=== PATIENT | female | born 1945 | race Asian ===

== ENCOUNTER 2018-04-17 18:57 | Emergency (ER) | payer OTHER ==
[~2018-04-17] VITALS: Ht 165.1 cm; Wt 66.2 kg
[2018-04-17 18:57] VITALS: BP_SYST 200
[2018-04-17] MEDS ORDERED: NACL 0.9% 1,000 ML IV ONE (19:41)
[2018-04-17] MEDS ORDERED: KETOROLAC TROMETHAMINE 30 MG VIAL IVP ONE (19:45)
[2018-04-17] MEDS ORDERED: ONDANSETRON HCL 4 MG/2 ML VIAL IVP ONE (19:45)
[2018-04-17 20:14] LABS: BASOPHILS % (AUTO) 0.4 % (0.0-2.0); EOSINOPHILS # (AUTO) 0.3 K/uL (0.0-0.4); EOSINOPHILS % (AUTO) 3.4 % (0.0-4.0); HEMATOCRIT 29.1 % (36-48); HEMOGLOBIN 9.6 g/dL (12.0-16.0); LYMPHOCYTES # (AUTO) 2.4 K/uL (1.0-5.5); LYMPHOCYTES % (AUTO) 30.5 % (20.5-51.5); MEAN CORPUSCULAR HEMOGLOBIN 29 pg (27-31); MEAN CORPUSCULAR HGB CONC 33 % (32-36); MEAN CORPUSCULAR VOLUME 88 fL (79.0-98.0); MONOCYTES # (AUTO) 0.6 K/uL (0.0-1.0); MONOCYTES % (AUTO) 7.1 % (1.7-9.3); NEUTROPHILS # (AUTO) 4.7 K/uL (1.8-7.7); NEUTROPHILS % (AUTO) 58.6 % (40.0-70.0); PLATELET COUNT (AUTO) 283 K/uL (130-430); RED CELL DISTRIBUTION WIDTH 13.2 % (9.0-15.0)
[2018-04-17 20:23] LABS: BILIRUBIN,URINE NEGATIVE (NEGATIVE); BLOOD, URINE NEGATIVE (NEGATIVE); CLARITY/URINE CLEAR (CLEAR); COLOR,URINE YELLOW (YELLOW); GLUCOSE,URINE 1+ (NEGATIVE); KETONES,URINE NEGATIVE (NEGATIVE); LEUKOCYTE ESTERASE ,URINE TRACE (NEGATIVE); NITRITE, URINE NEGATIVE (NEGATIVE); PH,URINE 6.5 (5.0-8.0); PROTEIN URINE NEGATIVE (NEGATIVE)
[2018-04-17 20:24] LABS: RBC,URINE 0-3 /HPF (0-3); UROBILINOGEN,URINE 0.2 (0.2-1.0)
[2018-04-17 20:25] LABS: BACTERIA,URINE FEW /HPF (None Seen)
[2018-04-17 20:26] LABS: ANION GAP 6 (5-15); CALCIUM 8.7 mg/dL (8.4-11.0); CHLORIDE 104 mmol/L (98-107); CREATININE 1.36 mg/dL (0.55-1.30); GLUCOSE 228 mg/dL (70-99); POTASSIUM 4.6 mmol/L (3.5-5.1); SODIUM SERUM 135 mmol/L (136-145); UREA NITROGEN, BLOOD 22 mg/dL (8-21)
[2018-04-17 20:27] LABS: PROTHROMBIN TIME 9.8 SECS (9.5-12.5)
[2018-04-17 20:30] LABS: ALANINE AMINOTRANSFERASE 27 U/L (12-78); ALBUMIN 3.4 g/dL (3.4-4.8); ASPARTATE AMINOTRANSFERASE 16 U/L (10-37); LIPASE 171 U/L (73-393); TOTAL BILIRUBIN 0.2 mg/dL (0.0-1.0)
[2018-04-17 21:35] VITALS: BP_SYST 138
== END 2018-04-17 21:35 | disposition home or self-care (01) ==
LOC: SED 18:57
DX: B34.9 Viral infection, unspecified (principal); D64.9 Anemia, unspecified; M25.552 Pain in left hip; M79.10 Myalgia, unspecified site; E11.9 Type 2 diabetes mellitus without complications; I10 Essential (primary) hypertension; Z88.5 Allergy status to narcotic agent
CPT/HCPCS: 36415; 71045; 80053; 81000; 83690; 84484; 85025; 85610; 85730; 86710; 87086; 96361; 96374; 96375; 99284; J1885; J2405; J7030

== ENCOUNTER 2018-04-20 21:49 | Emergency (ER) | payer OTHER ==
[~2018-04-20] VITALS: Ht 165.1 cm; Wt 66.2 kg
[2018-04-20 21:58] VITALS: BP_SYST 170
[2018-04-20] MEDS ORDERED: NS 500 ML IV ONE (22:15)
[2018-04-20 22:39] LABS: ANION GAP 11 (5-15); CALCIUM 8.7 mg/dL (8.4-11.0); CHLORIDE 102 mmol/L (98-107); CREATININE 1.62 mg/dL (0.55-1.30); GLUCOSE 253 mg/dL (70-99); POTASSIUM 4.3 mmol/L (3.5-5.1); SODIUM SERUM 137 mmol/L (136-145); UREA NITROGEN, BLOOD 35 mg/dL (8-21)
[2018-04-20 22:42] LABS: INR 0.9 (0.8-1.2); PROTHROMBIN TIME 9.6 SECS (9.5-12.5)
[2018-04-20 22:45] LABS: ALANINE AMINOTRANSFERASE 28 U/L (12-78); ALBUMIN 3.7 g/dL (3.4-4.8); ASPARTATE AMINOTRANSFERASE 19 U/L (10-37); TOTAL BILIRUBIN 0.2 mg/dL (0.0-1.0)
[2018-04-20] MEDS ORDERED: LEVOFLOXACIN 500 MG/D5W 100 ML IV ONE (22:45)
[2018-04-20 23:09] LABS: BASOPHILS % (AUTO) 0.5 % (0.0-2.0); EOSINOPHILS # (AUTO) 0.3 K/uL (0.0-0.4); EOSINOPHILS % (AUTO) 4.6 % (0.0-4.0); HEMATOCRIT 29.8 % (36-48); HEMOGLOBIN 9.7 g/dL (12.0-16.0); LYMPHOCYTES # (AUTO) 2.3 K/uL (1.0-5.5); LYMPHOCYTES % (AUTO) 32.1 % (20.5-51.5); MEAN CORPUSCULAR HEMOGLOBIN 28 pg (27-31); MEAN CORPUSCULAR HGB CONC 32 % (32-36); MEAN CORPUSCULAR VOLUME 88 fL (79.0-98.0); MONOCYTES # (AUTO) 0.7 K/uL (0.0-1.0); MONOCYTES % (AUTO) 10.2 % (1.7-9.3); NEUTROPHILS # (AUTO) 3.8 K/uL (1.8-7.7); NEUTROPHILS % (AUTO) 52.6 % (40.0-70.0); PLATELET COUNT (AUTO) 259 K/uL (130-430); RED CELL DISTRIBUTION WIDTH 12.8 % (9.0-15.0); WHITE BLOOD COUNT (AUTO) 7.1 K/uL (4.8-10.8)
[2018-04-21 00:44] LABS: BILIRUBIN,URINE NEGATIVE (NEGATIVE); BLOOD, URINE NEGATIVE (NEGATIVE); CLARITY/URINE CLEAR (CLEAR); COLOR,URINE YELLOW (YELLOW); GLUCOSE,URINE 1+ (NEGATIVE); KETONES,URINE NEGATIVE (NEGATIVE); LEUKOCYTE ESTERASE ,URINE TRACE (NEGATIVE); NITRITE, URINE NEGATIVE (NEGATIVE); PH,URINE 6.5 (5.0-8.0); PROTEIN URINE NEGATIVE (NEGATIVE); UROBILINOGEN,URINE 0.2 (0.2-1.0)
[2018-04-21 00:56] LABS: BACTERIA,URINE RARE /HPF (None Seen); RBC,URINE 0-3 /HPF (0-3)
[2018-04-21 01:20] VITALS: BP_SYST 146
== END 2018-04-21 01:20 | disposition home or self-care (01) ==
LOC: SED 21:49
DX: N39.0 Urinary tract infection, site not specified (principal); E11.9 Type 2 diabetes mellitus without complications; I10 Essential (primary) hypertension; Z88.5 Allergy status to narcotic agent
CPT/HCPCS: 36415; 71045; 80053; 81000; 83605; 84484; 85025; 85610; 85730; 87040; 87086; 93005; 96365; 99284; J1956; J7040

== ENCOUNTER 2018-05-06 22:27 | Inpatient (IN) | payer OTHER ==
[~2018-05-06] VITALS: Ht 165.1 cm; Wt 68.0 kg
[2018-05-06 22:30] VITALS: BP_SYST 145
[2018-05-06] MEDS ORDERED: NITROGLYCERIN 1 INCH (GM) OINT. TP ONE (22:45)
[2018-05-06 23:06] LABS: BASOPHILS # (AUTO) 0.1 K/uL (0.0-0.2); BASOPHILS % (AUTO) 0.9 % (0.0-2.0); EOSINOPHILS # (AUTO) 0.3 K/uL (0.0-0.4); EOSINOPHILS % (AUTO) 3.2 % (0.0-4.0); LYMPHOCYTES % (AUTO) 36.4 % (20.5-51.5); MEAN CORPUSCULAR HEMOGLOBIN 28 pg (27-31); MEAN CORPUSCULAR HGB CONC 32 % (32-36); MEAN CORPUSCULAR VOLUME 89 fL (79.0-98.0); MONOCYTES # (AUTO) 0.5 K/uL (0.0-1.0); MONOCYTES % (AUTO) 6.4 % (1.7-9.3); NEUTROPHILS # (AUTO) 4.4 K/uL (1.8-7.7); NEUTROPHILS % (AUTO) 53.1 % (40.0-70.0); PLATELET COUNT (AUTO) 257 K/uL (130-430); RED BLOOD CELL COUNT(AUTO) 2.32 MIL/uL (4.2-6.2); RED CELL DISTRIBUTION WIDTH 13.8 % (9.0-15.0); WHITE BLOOD COUNT (AUTO) 8.3 K/uL (4.8-10.8)
[2018-05-06 23:08] LABS: HEMOGLOBIN 6.5 g/dL (12.0-16.0)
[2018-05-06 23:09] LABS: HEMATOCRIT 20.5 % (36-48)
[2018-05-06 23:21] LABS: ANION GAP 13 (5-15); CALCIUM 9.2 mg/dL (8.4-11.0); CHLORIDE 108 mmol/L (98-107); CREATININE 1.97 mg/dL (0.55-1.30); GLUCOSE 231 mg/dL (70-99); SODIUM SERUM 139 mmol/L (136-145); UREA NITROGEN, BLOOD 89 mg/dL (8-21)
[2018-05-06 23:26] LABS: PROTHROMBIN TIME 9.8 SECS (9.5-12.5)
[2018-05-06 23:28] LABS: ALANINE AMINOTRANSFERASE 17 U/L (12-78); ALBUMIN 3.1 g/dL (3.4-4.8); ASPARTATE AMINOTRANSFERASE 12 U/L (10-37); TOTAL BILIRUBIN 0.1 mg/dL (0.0-1.0)
[2018-05-07] VITALS (7 sets, daily range): BP systolic 107–143
[2018-05-07] MEDS ORDERED: PANTOPRAZOLE SODIUM 80 MG in NS 100 ML IV ONE (09:00)
[2018-05-07] MEDS ORDERED: DEXTROSE 50% JECT 50 ML DISP.SYRIN IVP PRN (10:00)
[2018-05-07 10:07] LABS: BASOPHILS # (AUTO) 0.1 K/uL (0.0-0.2); BASOPHILS % (AUTO) 0.7 % (0.0-2.0); EOSINOPHILS # (AUTO) 0.2 K/uL (0.0-0.4); LYMPHOCYTES # (AUTO) 2.5 K/uL (1.0-5.5); MONOCYTES # (AUTO) 0.6 K/uL (0.0-1.0)
[2018-05-07 10:11] LABS: EOSINOPHILS % (AUTO) 2.9 % (0.0-4.0); HEMATOCRIT 22.5 % (36-48); LYMPHOCYTES % (AUTO) 32.9 % (20.5-51.5); MEAN CORPUSCULAR HEMOGLOBIN 28 pg (27-31); MEAN CORPUSCULAR HGB CONC 33 % (32-36); MEAN CORPUSCULAR VOLUME 86 fL (79.0-98.0); MONOCYTES % (AUTO) 7.9 % (1.7-9.3); NEUTROPHILS # (AUTO) 4.1 K/uL (1.8-7.7); NEUTROPHILS % (AUTO) 55.6 % (40.0-70.0); PLATELET COUNT (AUTO) 215 K/uL (130-430); RED BLOOD CELL COUNT(AUTO) 2.62 MIL/uL (4.2-6.2); RED CELL DISTRIBUTION WIDTH 14.1 % (9.0-15.0); WHITE BLOOD COUNT (AUTO) 7.5 K/uL (4.8-10.8)
[2018-05-07] MEDS ORDERED: SPIR25TA6 PO (10:12)
[2018-05-07] MEDS ORDERED: NOR10 PO (10:12)
[2018-05-07] MEDS ORDERED: LIP40 PO (10:12)
[2018-05-07] MEDS ORDERED: FERROUS SULFATE PO (10:12)
[2018-05-07] MEDS ORDERED: D3 PO (10:12)
[2018-05-07] MEDS ORDERED: APIX5TAB4 PO (10:12)
[2018-05-07] MEDS ORDERED: BENA40TA8 PO (10:12)
[2018-05-07] MEDS ORDERED: GLU500 PO (10:12)
[2018-05-07] MEDS ORDERED: TOPXL100 PO (10:12)
[2018-05-07] MEDS ORDERED: SSREG SUBCUT ×2 (10:12)
[2018-05-07] MEDS ORDERED: HYG25 PO (10:12)
[2018-05-07] MEDS ORDERED: PLAVIX PO (10:12)
[2018-05-07] MEDS ORDERED: HYDR100T25 PO (10:12)
[2018-05-07 10:16] LABS: ANION GAP 11 (5-15); CALCIUM 8.9 mg/dL (8.4-11.0); CHLORIDE 111 mmol/L (98-107); CREATININE 1.73 mg/dL (0.55-1.30); GLUCOSE 106 mg/dL (70-99); HEMOGLOBIN 7.4 g/dL (12.0-16.0); POTASSIUM 4.6 mmol/L (3.5-5.1); SODIUM SERUM 141 mmol/L (136-145); UREA NITROGEN, BLOOD 85 mg/dL (8-21)
[2018-05-07 10:25] LABS: ALANINE AMINOTRANSFERASE 15 U/L (12-78); ALBUMIN 2.9 g/dL (3.4-4.8); ASPARTATE AMINOTRANSFERASE 14 U/L (10-37); TOTAL BILIRUBIN 0.4 mg/dL (0.0-1.0)
[2018-05-07] MEDS ORDERED: CHLORTHALIDONE 25 MG TABLET (HYGROTON) PO ONE (10:30)
[2018-05-07] MEDS ORDERED: METOPROLOL SUCCINATE 50 MG TAB.SR.24H (TOPROL XL) PO ONE (10:30)
[2018-05-07] MEDS ORDERED: BENAZEPRIL HCL 20 MG TABLET (LOTENSIN) PO ONE (10:30)
[2018-05-07] MEDS ORDERED: amLODIPine BESYLATE 10 MG TABLET PO ONE (10:30)
[2018-05-07] MEDS ORDERED: hydrALAZINE HCL 25 MG TABLET PO ONE (10:30)
[2018-05-07] MEDS: NACL 0.9% 1,000 ML IV SCH ×2 (11:12→20:28)
[2018-05-07] MEDS: PANTOPRAZOLE SODIUM 40 MG in NS 50 ML IV SCH ×3 (11:13→20:28)
[2018-05-07] MEDS ORDERED: BISACODYL 5 MG TABLET.DR (DULCOLAX) PO ONE (17:00)
[2018-05-07] MEDS ORDERED: GOLYTELY / COLYTE SOLUTION 4 LITERS PO ONE (18:00)
[2018-05-07] MEDS: hydrALAZINE HCL 25 MG TABLET PO SCH (20:30)
[2018-05-07] MEDS: ATORVASTATIN 20 MG TABLET PO SCH (20:30)
[2018-05-08] MEDS: PANTOPRAZOLE SODIUM 40 MG in NS 50 ML IV SCH ×5 (01:00→21:08)
[2018-05-08] MEDS: MORPHINE 4 MG/ML INJ. SYRINGE IVP PRN ×3 (01:13→13:14)
[2018-05-08 01:18] VITALS: BP_SYST 116
[2018-05-08] MEDS: NACL 0.9% 1,000 ML IV SCH ×3 (05:40→23:32)
[2018-05-08] MEDS ORDERED: fentaNYL CITRATE/PF 100 MCG/2 ML AMP ONE (06:10)
[2018-05-08] MEDS ORDERED: MIDAZOLAM HCL 5 MG/5 ML VIAL ONE (06:10)
[2018-05-08] MEDS ORDERED: SIMETHICONE 40 MG/0.6 ML ML ONE (06:11)
[2018-05-08] MEDS ORDERED: BENZOCAINE 20% 0.5mL UD SPRAY MM ONE (06:11)
[2018-05-08] MEDS: fentaNYL CITRATE/PF 100 MCG/2 ML AMP ONE ×4 (07:04→07:31)
[2018-05-08] MEDS: MIDAZOLAM HCL 5 MG/5 ML VIAL ONE ×5 (07:06→07:26)
[2018-05-08 07:30] LABS: PROTHROMBIN TIME 10.1 SECS (9.5-12.5)
[2018-05-08 08:21] VITALS: BP_SYST 145
[2018-05-08] MEDS: METOPROLOL SUCCINATE 50 MG TAB.SR.24H (TOPROL XL) PO SCH (10:00)
[2018-05-08] MEDS: hydrALAZINE HCL 25 MG TABLET PO SCH ×2 (10:01→21:07)
[2018-05-08] MEDS: BENAZEPRIL HCL 20 MG TABLET (LOTENSIN) PO SCH (10:01)
[2018-05-08] MEDS: amLODIPine BESYLATE 10 MG TABLET PO SCH (10:02)
[2018-05-08] MEDS: CHLORTHALIDONE 25 MG TABLET (HYGROTON) PO SCH (10:03)
[2018-05-08 11:25] LABS: BASOPHILS # (AUTO) 0.1 K/uL (0.0-0.2); BASOPHILS % (AUTO) 0.7 % (0.0-2.0); EOSINOPHILS # (AUTO) 0.2 K/uL (0.0-0.4); EOSINOPHILS % (AUTO) 2.5 % (0.0-4.0); HEMOGLOBIN 7.5 g/dL (12.0-16.0); LYMPHOCYTES % (AUTO) 32.9 % (20.5-51.5); MEAN CORPUSCULAR HEMOGLOBIN 28 pg (27-31); MEAN CORPUSCULAR HGB CONC 33 % (32-36); MEAN CORPUSCULAR VOLUME 86 fL (79.0-98.0); MONOCYTES # (AUTO) 0.8 K/uL (0.0-1.0); MONOCYTES % (AUTO) 8.6 % (1.7-9.3); NEUTROPHILS % (AUTO) 55.3 % (40.0-70.0); PLATELET COUNT (AUTO) 250 K/uL (130-430); RED BLOOD CELL COUNT(AUTO) 2.68 MIL/uL (4.2-6.2); RED CELL DISTRIBUTION WIDTH 14.4 % (9.0-15.0); WHITE BLOOD COUNT (AUTO) 9.1 K/uL (4.8-10.8)
[2018-05-08 11:27] VITALS: BP_SYST 94
[2018-05-08] MEDS: INSULIN REGULAR, HUMAN 100 UNITS/ML, 10 ML VIAL (novoLIN R) SUBCUT PRN ×2 (11:34→17:36)
[2018-05-08 12:54] LABS: TOTAL IRON BIND. CAPACITY 330 ug/dL (250-450)
[2018-05-08 13:18] VITALS: BP_SYST 112
[2018-05-08 15:36] VITALS: BP_SYST 135
[2018-05-08 20:05] VITALS: BP_SYST 124
[2018-05-08] MEDS: ATORVASTATIN 20 MG TABLET PO SCH (21:08)
[2018-05-09 00:30] VITALS: BP_SYST 114
[2018-05-09] MEDS: PANTOPRAZOLE SODIUM 40 MG in NS 50 ML IV SCH ×5 (02:05→22:29)
[2018-05-09 07:08] LABS: BASOPHILS # (AUTO) 0.1 K/uL (0.0-0.2); BASOPHILS % (AUTO) 0.8 % (0.0-2.0); EOSINOPHILS # (AUTO) 0.2 K/uL (0.0-0.4); EOSINOPHILS % (AUTO) 3.1 % (0.0-4.0); HEMOGLOBIN 7.2 g/dL (12.0-16.0); LYMPHOCYTES % (AUTO) 30.4 % (20.5-51.5); MEAN CORPUSCULAR HEMOGLOBIN 29 pg (27-31); MEAN CORPUSCULAR HGB CONC 34 % (32-36); MEAN CORPUSCULAR VOLUME 87 fL (79.0-98.0); MONOCYTES # (AUTO) 0.7 K/uL (0.0-1.0); MONOCYTES % (AUTO) 11.4 % (1.7-9.3); NEUTROPHILS # (AUTO) 3.6 K/uL (1.8-7.7); NEUTROPHILS % (AUTO) 54.3 % (40.0-70.0); PLATELET COUNT (AUTO) 191 K/uL (130-430); RED BLOOD CELL COUNT(AUTO) 2.47 MIL/uL (4.2-6.2); RED CELL DISTRIBUTION WIDTH 14.6 % (9.0-15.0); WHITE BLOOD COUNT (AUTO) 6.6 K/uL (4.8-10.8)
[2018-05-09 07:22] LABS: ANION GAP 8 (5-15); CALCIUM 8.2 mg/dL (8.4-11.0); CHLORIDE 115 mmol/L (98-107); CREATININE 1.31 mg/dL (0.55-1.30); GLUCOSE 116 mg/dL (70-99); POTASSIUM 4.1 mmol/L (3.5-5.1); SODIUM SERUM 142 mmol/L (136-145); UREA NITROGEN, BLOOD 37 mg/dL (8-21)
[2018-05-09 07:28] LABS: HEMATOCRIT 21.4 % (36-48)
[2018-05-09 08:58] VITALS: BP_SYST 172
[2018-05-09] MEDS: amLODIPine BESYLATE 10 MG TABLET PO SCH (09:01)
[2018-05-09] MEDS: METOPROLOL SUCCINATE 50 MG TAB.SR.24H (TOPROL XL) PO SCH (09:02)
[2018-05-09] MEDS: BENAZEPRIL HCL 20 MG TABLET (LOTENSIN) PO SCH (09:02)
[2018-05-09] MEDS: hydrALAZINE HCL 25 MG TABLET PO SCH ×2 (09:03→21:01)
[2018-05-09] MEDS: CHLORTHALIDONE 25 MG TABLET (HYGROTON) PO SCH (09:04)
[2018-05-09] MEDS: NACL 0.9% 1,000 ML IV SCH ×2 (10:05→22:29)
[2018-05-09 11:34] VITALS: BP_SYST 103
[2018-05-09] MEDS: INSULIN REGULAR, HUMAN 100 UNITS/ML, 10 ML VIAL (novoLIN R) SUBCUT PRN ×2 (11:57→23:57)
[2018-05-09 15:43] VITALS: BP_SYST 138
[2018-05-09 18:01] LABS: BASOPHILS # (AUTO) 0.1 K/uL (0.0-0.2); BASOPHILS % (AUTO) 0.8 % (0.0-2.0); EOSINOPHILS # (AUTO) 0.3 K/uL (0.0-0.4); EOSINOPHILS % (AUTO) 3.5 % (0.0-4.0); HEMOGLOBIN 9.4 g/dL (12.0-16.0); LYMPHOCYTES # (AUTO) 1.9 K/uL (1.0-5.5); LYMPHOCYTES % (AUTO) 25.3 % (20.5-51.5); MEAN CORPUSCULAR HEMOGLOBIN 28 pg (27-31); MEAN CORPUSCULAR HGB CONC 32 % (32-36); MEAN CORPUSCULAR VOLUME 87 fL (79.0-98.0); MONOCYTES # (AUTO) 0.8 K/uL (0.0-1.0); MONOCYTES % (AUTO) 10.5 % (1.7-9.3); NEUTROPHILS # (AUTO) 4.3 K/uL (1.8-7.7); NEUTROPHILS % (AUTO) 59.9 % (40.0-70.0); PLATELET COUNT (AUTO) 201 K/uL (130-430); RED BLOOD CELL COUNT(AUTO) 3.34 MIL/uL (4.2-6.2); RED CELL DISTRIBUTION WIDTH 14.1 % (9.0-15.0); WHITE BLOOD COUNT (AUTO) 7.4 K/uL (4.8-10.8)
[2018-05-09 20:00] VITALS: BP_SYST 146
[2018-05-09 20:40] VITALS: BP_SYST 123
[2018-05-09] MEDS: ATORVASTATIN 20 MG TABLET PO SCH (21:01)
[2018-05-10] MEDS: PANTOPRAZOLE SODIUM 40 MG in NS 50 ML IV SCH ×2 (03:05→08:38)
[2018-05-10 07:12] LABS: BASOPHILS % (AUTO) 0.5 % (0.0-2.0); EOSINOPHILS # (AUTO) 0.2 K/uL (0.0-0.4); EOSINOPHILS % (AUTO) 3.5 % (0.0-4.0); HEMATOCRIT 27.7 % (36-48); HEMOGLOBIN 9.3 g/dL (12.0-16.0); LYMPHOCYTES # (AUTO) 1.8 K/uL (1.0-5.5); LYMPHOCYTES % (AUTO) 26.5 % (20.5-51.5); MEAN CORPUSCULAR HEMOGLOBIN 29 pg (27-31); MEAN CORPUSCULAR HGB CONC 34 % (32-36); MEAN CORPUSCULAR VOLUME 87 fL (79.0-98.0); MONOCYTES # (AUTO) 0.7 K/uL (0.0-1.0); MONOCYTES % (AUTO) 10.7 % (1.7-9.3); NEUTROPHILS # (AUTO) 4.1 K/uL (1.8-7.7); NEUTROPHILS % (AUTO) 58.8 % (40.0-70.0); PLATELET COUNT (AUTO) 183 K/uL (130-430); RED BLOOD CELL COUNT(AUTO) 3.19 MIL/uL (4.2-6.2); RED CELL DISTRIBUTION WIDTH 14.1 % (9.0-15.0); WHITE BLOOD COUNT (AUTO) 6.8 K/uL (4.8-10.8)
[2018-05-10 08:00] VITALS: BP_SYST 177
[2018-05-10 08:12] LABS: ALANINE AMINOTRANSFERASE 25 U/L (12-78); ALBUMIN 2.8 g/dL (3.4-4.8); ANION GAP 9 (5-15); ASPARTATE AMINOTRANSFERASE 25 U/L (10-37); CALCIUM 8.3 mg/dL (8.4-11.0); CHLORIDE 110 mmol/L (98-107); CREATININE 1.31 mg/dL (0.55-1.30); GLUCOSE 112 mg/dL (70-99); POTASSIUM 3.6 mmol/L (3.5-5.1); SODIUM SERUM 138 mmol/L (136-145); TOTAL BILIRUBIN 0.5 mg/dL (0.0-1.0); UREA NITROGEN, BLOOD 23 mg/dL (8-21)
[2018-05-10] MEDS: NACL 0.9% 1,000 ML IV SCH (08:37)
[2018-05-10] MEDS: METOPROLOL SUCCINATE 50 MG TAB.SR.24H (TOPROL XL) PO SCH (08:39)
[2018-05-10] MEDS: hydrALAZINE HCL 25 MG TABLET PO SCH (08:39)
[2018-05-10] MEDS: amLODIPine BESYLATE 10 MG TABLET PO SCH (08:39)
[2018-05-10] MEDS: BENAZEPRIL HCL 20 MG TABLET (LOTENSIN) PO SCH (08:40)
[2018-05-10] MEDS: CHLORTHALIDONE 25 MG TABLET (HYGROTON) PO SCH (08:52)
[2018-05-10] MEDS ORDERED: PANTOPRAZOLE SODIUM 40 MG TAB PO ONE (10:00)
[2018-05-10] MEDS ORDERED: FUROSEMIDE 20 MG/2 ML VIAL IVP ONE (10:15)
[2018-05-10 12:00] VITALS: BP_SYST 150; BP_SYST 177
[2018-05-10] MEDS: INSULIN REGULAR, HUMAN 100 UNITS/ML, 10 ML VIAL (novoLIN R) SUBCUT PRN (12:11)
[2018-05-10 14:00] VITALS: BP_SYST 150
[2018-05-10] MEDS ORDERED: PRO40 PO (14:08)
[2018-05-10] MEDS ORDERED: PANTOPRAZOLE SODIUM 40 MG TAB PO SCH (21:00)
== END 2018-05-10 14:30 | disposition home or self-care (01) | DRG 377 ==
LOC: SED 22:27 → STU 05-07 00:30
PROVIDERS: ADMIT Internal Medicine Hospice and Palliative Medicine; ATTEND Internal Medicine Hospice and Palliative Medicine
PROC: 30233N1 Transfusion of Nonautologous Red Blood Cells into Peripheral Vein, Percutaneous Approach (ICD-10-PCS; principal; 2018-05-07)
PROC: 0DJD8ZZ Inspection of Lower Intestinal Tract, Via Natural or Artificial Opening Endoscopic (ICD-10-PCS; 2018-05-08)
PROC: 0DB68ZX Excision of Stomach, Via Natural or Artificial Opening Endoscopic, Diagnostic (ICD-10-PCS; 2018-05-08 07:00)
DX: K25.4 Chronic or unspecified gastric ulcer with hemorrhage (principal); N17.0 Acute kidney failure with tubular necrosis; D62 Acute posthemorrhagic anemia; R07.9 Chest pain, unspecified; E11.9 Type 2 diabetes mellitus without complications; I10 Essential (primary) hypertension; I48.0 Paroxysmal atrial fibrillation; I25.10 Atherosclerotic heart disease of native coronary artery without angina pectoris; I48.2 Chronic atrial fibrillation; K22.2 Esophageal obstruction; K29.70 Gastritis, unspecified, without bleeding; K29.80 Duodenitis without bleeding; K64.8 Other hemorrhoids; Z79.01 Long term (current) use of anticoagulants; Z79.82 Long term (current) use of aspirin; Z90.12 Acquired absence of left breast and nipple; Z95.5 Presence of coronary angioplasty implant and graft; Z88.5 Allergy status to narcotic agent
CPT/HCPCS: 36415; 36600; 43239; 45378; 71045; 80048; 80053; 82272; 82550-TC; 82803-TC; 82962; 83540-TC; 83550-TC; 83880; 84484; 85025; 85610-TC; 85730-TC; 86886; 86900; 86901; 86920; 87081; 93005; 93306; 99291; C9113; G0378; J1815; J1940; J2250; J2270; J3010; J7030; J7040; P9021

== ENCOUNTER 2019-11-01 16:15 | Emergency (ER) | payer OTHER ==
[~2019-11-01] VITALS: Ht 165.1 cm; Wt 68.0 kg
[~2019-11-01 16:15] MED LIST: BENA40TA8 PO; D3 PO; FERROUS SULFATE PO; GLU500 PO; HYDR100T25 PO; HYG25 PO; LIP40 PO; NOR10 PO; PRO40 PO; SPIR25TA6 PO; SSREG SUBCUT; TOPXL100 PO
[2019-11-01 16:20] VITALS: BP_SYST 189
[2019-11-01] MEDS ORDERED: DIPH-TET-PERTUS Vaccine 0.5 ML VIAL (ADACEL) I.M. ONE (16:45)
[2019-11-01] MEDS ORDERED: LIDOCAINE 1% 10 MG/ML, 20 ML MDV INJ ONE (16:45)
[2019-11-01] MEDS ORDERED: LIDOCAINE 1%, 20 ML MDV 20 ML ONE (16:53)
[2019-11-01 16:58] VITALS: BP_SYST 189
[2019-11-01] MEDS ORDERED: BACITRACIN 1 GM OINT TP ONE (17:06)
== END 2019-11-01 16:58 | disposition home or self-care (01) ==
LOC: SED 16:15
DX: S61.451A Open bite of right hand, initial encounter (principal); I10 Essential (primary) hypertension; E11.9 Type 2 diabetes mellitus without complications; Z79.899 Other long term (current) drug therapy; Z88.5 Allergy status to narcotic agent; W54.0XXA Bitten by dog, initial encounter; Y93.89 Activity, other specified; Y92.89 Other specified places as the place of occurrence of the external cause; Y99.8 Other external cause status
CPT/HCPCS: 12001; 73100; 90471; 90715; 99283; J2001

== ENCOUNTER 2020-02-18 01:07 | Emergency (ER) | payer OTHER ==
[~2020-02-18] VITALS: Ht 165.1 cm; Wt 66.2 kg
[2020-02-18 01:25] VITALS: BP_SYST 164
--- NOTE | 2020-02-18 01:25 | NUR ---
Patient to ER bed 04 to gown for evaluation. Side rails up. Report given to CHUY Dinero
--- NOTE | 2020-02-18 01:25 | NUR ---
ER MD AT BEDSIDE FOR EVALUATION. AWAITING ORDERS
--- NOTE | 2020-02-18 01:30 | NUR ---
# 18 gauge angiocath placed to RAC. Use of asceptic technique. Opsite placed over site. Blood return noted. Blood, blood cultures, lactic for lab drawn from site. Flushed with 10 cc of normal saline. No evidence of infiltration noted. Patient tolerated well.
--- NOTE | 2020-02-18 01:30 | NUR ---
code stroke called
--- NOTE | 2020-02-18 01:35 | NUR ---
PT BIB DAUGHTER VIA WHEELCHAIR. DAUGHTER STATES SHE HAD A EPISODE OF CONFUSION STARTING AT 0025 TO ARRIVAL AT ED. PT DENIES ANY PAIN. PT DENIES DIZZINESS, CHEST PAIN, OR SOB. PT ANO X4. NO SIGNS OR SYMPTOMS OF DISTRESS NOTED. SAFETY PRECAUTIONS IN PLACE. WILL CONTINUE TO MONITOR.
--- NOTE | 2020-02-18 01:38 | NUR ---
Patient transported to radiology via wheelchair, accompanied by
[2020-02-18] MEDS ORDERED: SITA100T11 PO (01:48)
[2020-02-18] MEDS ORDERED: GLIM2TAB PO (01:48)
[2020-02-18] MEDS ORDERED: CLOP75TA32 PO (01:50)
[2020-02-18] MEDS ORDERED: FERR256T PO (01:50)
[2020-02-18] MEDS ORDERED: ASCO-339 PO (01:50)
[2020-02-18] MEDS ORDERED: CALC-885 PO (01:50)
[2020-02-18 01:51] LABS: BASOPHILS # (AUTO) 0.1 K/uL (0.0-0.2); BASOPHILS % (AUTO) 0.9 % (0.0-2.0); EOSINOPHILS # (AUTO) 0.3 K/uL (0.0-0.4); EOSINOPHILS % (AUTO) 3.5 % (0.0-4.0); HEMATOCRIT 37.9 % (36-48); HEMOGLOBIN 12.1 g/dL (12.0-16.0); LYMPHOCYTES # (AUTO) 1.7 K/uL (1.0-5.5); LYMPHOCYTES % (AUTO) 18.9 % (20.5-51.5); MEAN CORPUSCULAR HEMOGLOBIN 29 pg (27-31); MEAN CORPUSCULAR HGB CONC 32 % (32-36); MEAN CORPUSCULAR VOLUME 91 fL (79.0-98.0); MONOCYTES # (AUTO) 0.7 K/uL (0.0-1.0); MONOCYTES % (AUTO) 7.6 % (1.7-9.3); NEUTROPHILS # (AUTO) 6.2 K/uL (1.8-7.7); NEUTROPHILS % (AUTO) 69.1 % (40.0-70.0); PLATELET COUNT (AUTO) 249 K/uL (130-430); RED BLOOD CELL COUNT(AUTO) 4.16 MIL/uL (4.2-6.2); RED CELL DISTRIBUTION WIDTH 13.3 % (9.0-15.0)
--- NOTE | 2020-02-18 01:51 | NUR ---
Medication reconciliation completed with information provided by daughter. Any prior medication reconciliation on file was reviewed and corrected.
[2020-02-18 02:04] LABS: ANION GAP 9 (5-15); CHLORIDE 99 mmol/L (98-107); CREATININE 1.37 mg/dL (0.55-1.30); GLUCOSE 168 mg/dL (70-99); POTASSIUM 4.3 mmol/L (3.5-5.1); SODIUM SERUM 132 mmol/L (136-145); UREA NITROGEN, BLOOD 31 mg/dL (8-21)
[2020-02-18 02:08] LABS: C-REACTIVE PROTEIN QUANT < 0.2 mg/dL (0-0.5)
[2020-02-18 02:21] LABS: ACETAMINOPHEN < 1 ug/mL (1-30); ALANINE AMINOTRANSFERASE 21 U/L (12-78); ALBUMIN 4.3 g/dL (3.4-4.8); ALCOHOL, BLOOD < 3 mg/dL (<10); ASPARTATE AMINOTRANSFERASE 16 U/L (10-37); LACTATE DEHYDROGENASE 194 U/L (81-234); TOTAL BILIRUBIN 0.3 mg/dL (0.0-1.0)
--- NOTE | 2020-02-18 02:33 | NUR ---
CRITICAL LAB REPORTING - COVID POSITIVE. AWARE.
[2020-02-18 02:46] LABS: PROTHROMBIN TIME 9.8 SECS (9.5-12.5)
--- NOTE | 2020-02-18 02:58 | NUR ---
SWALLOW EVAL PERFORMED AT BEDSIDE. PT TOLERATED PROCEDURE WELL. WILL CONTINUE TO MONITOR.
--- NOTE | 2020-02-18 03:17 | NUR ---
PT ABLE TO VOID, SPECIMEN COLLECTED AND SENT TO LAB
[2020-02-18 03:29] LABS: BILIRUBIN,URINE NEGATIVE (NEGATIVE); BLOOD, URINE NEGATIVE (NEGATIVE); CLARITY/URINE CLEAR (CLEAR); COLOR,URINE YELLOW (YELLOW); GLUCOSE,URINE NEGATIVE (NEGATIVE); KETONES,URINE NEGATIVE (NEGATIVE); LEUKOCYTE ESTERASE ,URINE TRACE (NEGATIVE); NITRITE, URINE NEGATIVE (NEGATIVE); PROTEIN URINE 1+ (NEGATIVE); UROBILINOGEN,URINE 0.2 (0.2-1.0)
[2020-02-18 03:35] LABS: BACTERIA,URINE FEW /HPF (None Seen); RBC,URINE 0-3 /HPF (0-3)
[2020-02-18 03:36] LABS: BARBITURATE, URINE NEGATIVE (NEG <=200); BENZODIAZEPINE, URINE NEGATIVE (NEG <=150); CANNABINOID, URINE NEGATIVE (NEG <=50); COCAINE, URINE NEGATIVE (NEG <=150); METHAMPHETAMINES SCREEN,URINE NEGATIVE (NEG <=500); OPIATE, URINE NEGATIVE (NEG <=100); PHENCYCLIDINE SCREEN,URINE NEGATIVE (NEG <=25); UR TRICYCLIC ANTIDEPRESSANTS NEGATIVE (NEG <=300); URINE AMPHETAMINE NEGATIVE (NEG <=500); URINE METHADONE NEGATIVE (NEG <=200); URINE OXYCODONE SCREEN NEGATIVE (NEG <=100); URINE PROPOXYPHENE SCREEN NEGATIVE (NEG <=300)
--- NOTE | 2020-02-18 04:29 | NUR ---
PT AMBULATING TO RESTROOM WITH DAUGHTER. PT USING CANE TO AMBULATE. NO SIGNS OR SYMPTOMS O DISTRESS NOTED. WILL CONITINUE TO MONITOR.
[2020-02-18 04:44] VITALS: BP_SYST 132
--- NOTE | 2020-02-18 04:44 | NUR ---
Patient given written and verbal discharge instructions and verbalizes understanding. ER MD discussed with patient the results and treatment provided. Patient in stable condition. ID arm band removed. IV catheter removed intact and dressing applied, no active bleeding. NO RX given. Patient educated on pain management and to follow up with PMD. Pain Scale 0/10 Opportunity for questions provided and answered. Medication side effect fact sheet provided.
== END 2020-02-18 04:44 | disposition home or self-care (01) ==
LOC: SED 01:07
DX: U07.1 COVID-19 (principal); I10 Essential (primary) hypertension; E11.9 Type 2 diabetes mellitus without complications; Z88.5 Allergy status to narcotic agent; Z79.899 Other long term (current) drug therapy
CPT/HCPCS: 36415; 70450; 71045; 76376; 80053; 80307; 81000; 82550; 82728; 82962; 83605; 83615; 83880; 84484; 85025; 85384; 85610; 85730; 86140; 87040; 87086; 87426; 93005; 99285; G0480; G0481; G0482

== ENCOUNTER 2021-01-30 04:12 | Observation (INO) | payer OTHER, SELFPAY ==
[~2021-01-30] VITALS: Ht 165.1 cm; Wt 64.0 kg
[2021-01-30 04:12] VITALS: BP_SYST 135
[~2021-01-30 04:12] MED LIST changes: +ASCO-339 PO; +CALC-885 PO; +CLOP75TA32 PO; -D3 PO; +FERR256T PO; -FERROUS SULFATE PO; +GLIM2TAB PO; -GLU500 PO; -HYG25 PO; -NOR10 PO; -PRO40 PO; +SITA100T11 PO; -SPIR25TA6 PO; -SSREG SUBCUT
--- NOTE | 2021-01-30 04:20 | NUR ---
Patient to ER bed 8 to gown for evaluation. Side rails up.
--- NOTE | 2021-01-30 04:27 | NUR ---
Patient AAOx4 and ambulatory bib DTR from home c/o substernal chest pain x1hr [employer] that radiates to left shoulder. denies any SOB, n/v/d. states having cough, congestion, and sore throat for acouple days. hx of a-fib, left total mastectomy, DM, HTN. currently stating 8/10 on the pain scale.
--- NOTE | 2021-01-30 04:28 | NUR ---
ROB Cody at bedside examining patient.
[2021-01-30] MEDS ORDERED: ASPIRIN 81 MG TAB.CHEW PO ONE (04:30)
[2021-01-30] MEDS ORDERED: NACL 0.9% 1,000 ML IV ONE (04:30)
[2021-01-30] MEDS ORDERED: NITROGLYCERIN 0.4 MG TAB.SUBL SL ONE (04:30)
[2021-01-30] MEDS ORDERED: DILTIAZEM HCL 25 MG/5 ML VIAL IVP ONE (04:30)
--- NOTE | 2021-01-30 04:40 | NUR ---
PORTABLE XRAY AT BEDSIDE COMPLETED.
[2021-01-30] MEDS ORDERED: AZITHROMYCIN 500 MG in NS 250 ML IV ONE (04:45)
[2021-01-30] MEDS ORDERED: cefTRIAXone 1 GM in D5W 50 ML IV ONE (04:45)
--- NOTE | 2021-01-30 04:50 | NUR ---
# 20 gauge angiocath placed to RAC. Use of asceptic technique. Opsite placed over site. Blood return noted. Blood for lab drawn from site. Flushed with 10 cc of normal saline. No evidence of infiltration noted. Patient tolerated well.
[2021-01-30] MEDS ORDERED: FERR-69 PO (05:06)
[2021-01-30] MEDS ORDERED: HYDR-4039 PO (05:07)
--- NOTE | 2021-01-30 05:09 | NUR ---
COVID SWAB COLLECTED AND SENT TO LAB.
--- NOTE | 2021-01-30 05:10 | NUR ---
Medication reconciliation completed with information provided by DAUGHTER. Any prior medication reconciliation on file was reviewed and corrected.
[2021-01-30] MEDS ORDERED: cefTRIAXone 1 GM VIAL ONE (05:25)
[2021-01-30] MEDS ORDERED: AZITHROMYCIN 500 MG/VIAL (ZITHROMAX) IV ONE (05:26)
--- NOTE | 2021-01-30 05:30 | NUR ---
# 20 gauge angiocath placed to RIGHT WRIST. Use of asceptic technique. Opsite placed over site. Blood return noted. Flushed with 10 cc of normal saline. No evidence of infiltration noted. Patient tolerated well.
[2021-01-30 05:35] LABS: BASOPHILS % (AUTO) 0.4 % (0.0-2.0); EOSINOPHILS # (AUTO) 0.3 K/uL (0.0-0.4); EOSINOPHILS % (AUTO) 3.3 % (0.0-4.0); LYMPHOCYTES # (AUTO) 1.3 K/uL (1.0-5.5); LYMPHOCYTES % (AUTO) 17.4 % (20.5-51.5); MEAN CORPUSCULAR HEMOGLOBIN 30 pg (27-31); MEAN CORPUSCULAR HGB CONC 33 % (32-36); MEAN CORPUSCULAR VOLUME 89 fL (79.0-98.0); MONOCYTES # (AUTO) 0.8 K/uL (0.0-1.0); MONOCYTES % (AUTO) 10.1 % (1.7-9.3); NEUTROPHILS # (AUTO) 5.3 K/uL (1.8-7.7); NEUTROPHILS % (AUTO) 68.8 % (40.0-70.0); PLATELET COUNT (AUTO) 185 K/uL (130-430); RED CELL DISTRIBUTION WIDTH 13.1 % (9.0-15.0); WHITE BLOOD COUNT (AUTO) 7.7 K/uL (4.8-10.8)
[2021-01-30] MEDS ORDERED: DILTIAZEM HCL 125 MG/25 ML VIAL IV ONE (05:36)
[2021-01-30] MEDS ORDERED: NITROGLYCERIN 1 INCH (GM) OINT. TP ONE (05:45)
--- NOTE | 2021-01-30 05:45 | NUR ---
DILTIAZEM 125 MG DRIP INITIATED AT 10MG/HR. HR 120, GOAL HR 90. BP 118/79.
[2021-01-30 05:59] LABS: ANION GAP 13 (5-15); CALCIUM 8.6 mg/dL (8.4-11.0); CHLORIDE 95 mmol/L (98-107); CREATININE 1.55 mg/dL (0.55-1.30); GLUCOSE 214 mg/dL (70-99); POTASSIUM 3.6 mmol/L (3.5-5.1); SODIUM SERUM 131 mmol/L (136-145); UREA NITROGEN, BLOOD 23 mg/dL (8-21)
[2021-01-30 06:03] LABS: ALANINE AMINOTRANSFERASE 18 U/L (12-78); ALBUMIN 3.4 g/dL (3.4-4.8); ASPARTATE AMINOTRANSFERASE 17 U/L (10-37); TOTAL BILIRUBIN 0.6 mg/dL (0.0-1.0)
--- NOTE | 2021-01-30 06:04 | NUR ---
BLOOD GLUCOSE 212. MD GIBSON NOTIFIED.
--- NOTE | 2021-01-30 06:10 | NUR ---
INCREASED DILTIAZEM DRIP TO 15MG/HR . HR AT 110. BP 118/74
--- NOTE | 2021-01-30 06:17 | NUR ---
Patient's code status is FULL CODE paperwork completed and placed in chart.
--- NOTE | 2021-01-30 06:36 | NUR ---
DECREASED DILTIAZEM DRIP TO 10MG/HR. HR AT 90 BMP.
[2021-01-30] MEDS ORDERED: IOHEXOL 350 mgI/mL, 150 ML INFUS..BTL IV ONE (07:00)
--- NOTE | 2021-01-30 07:00 | NUR ---
REPORT RECEIVED FROM CHUY MARTINEZ FOR CONTINUING CARE
--- NOTE | 2021-01-30 07:02 | NUR ---
PT IS AAOX4, LAYING IN GURNEY, EVEN UNLABORED RESPIRATIONS, PRODUCTIVE COUGH. NO DISTRESS, V/S STABLE
--- NOTE | 2021-01-30 07:04 | NUR ---
Patient transported to radiology via GURNEY, accompanied by STAFF.
--- NOTE | 2021-01-30 07:18 | NUR ---
Returned from radiology.
--- NOTE | 2021-01-30 08:02 | NUR ---
DECREASED DILTIAZEM DRIP TO 5MG/HR. HR AT 85-90 BMP.
--- NOTE | 2021-01-30 08:20 | NUR ---
DECREASED DILTIAZEM STOPPED. BP 75-85. MD MADE AWARE.
[2021-01-30] MEDS ORDERED: DILTIAZEM HCL 30 MG TABLET PO ONE (08:30)
--- NOTE | 2021-01-30 08:52 | NUR ---
Patient will be admitted to care of DR. RUIZ. Admitted to TELE unit. Will go to room 124B. Belongings list completed. Complete and up to date summary report printed. SBAR report to be given at bedside with opportunity for questions.
--- NOTE | 2021-01-30 08:55 | NUR ---
COVID AND INFLUENZA SWABS DONE AND SENT TO LAB
--- NOTE | 2021-01-30 09:30 | NUR ---
ADMISSION NOTE Received patient from ER via gurney. Patient admitted with diagnosis of A fib. Patient is awake, alert, oriented X 4. Patient oriented to hospital room, call light, toileting, pain management and safety-teach back done. Personal belongings checked and Belongings List documented. Call light within reach. On 3 L nasal cannula and tolerating well with no signs of shortness of breath noted. Vitals are stable. Placed in 126A with contact and droplet precautions in place. Will continue to monitor.
--- NOTE | 2021-01-30 09:33 | NUR ---
CONSULTATION PAGED REASON FOR CONSULTATION:A-FIB, CHEST PAIN WAS CONSULT CALLED?Y PERSON WHO WAS NOTIFIED: RENETTA CONSULTING PHYSICIAN:PINO JACKSON SUPERVISOR [employer] SPECIALTY:CARDIO SUPERVISOR [employer] PHONE NUMBER:[phone] REQUESTING PHYSICIAN:LILIAN MÉNDEZ
[2021-01-30 09:50] VITALS: BP_SYST 139
[2021-01-30] MEDS ORDERED: METOPROLOL SUCCINATE 50 MG TAB.SR.24H (TOPROL XL) PO ONE (11:00)
[2021-01-30] MEDS ORDERED: GLIMEPIRIDE 2 MG TABLET PO SCH (11:00)
[2021-01-30] MEDS ORDERED: DEXTROSE 50% JECT 50 ML DISP.SYRIN IVP PRN (11:15)
--- NOTE | 2021-01-30 11:18 | NUR ---
RN NOTE DR. RUIZ TO SEE PATIENT. PATIENT IS RESTING IN BED COMFORTABLY, ON 3 L NASAL CANNULA AND NO C/O SHORTNESS OF BREATH NOTED. WILL CONTINUE TO MONITOR.
[2021-01-30] MEDS: hydrALAZINE HCL 25 MG TABLET PO SCH ×2 (14:28→21:15)
[2021-01-30 14:32] VITALS: BP_SYST 132
[2021-01-30] MEDS: INSULIN REGULAR, HUMAN 100 UNITS/ML, 10 ML VIAL (humuLIN R) SUBCUT PRN (17:17)
--- NOTE | 2021-01-30 18:42 | NUR ---
CLOSING NOTE Patient currently resting in bed and respirations remain even and non-labored on 3 L NC and tolerating well. Bed locked in lowest position and call light is within reach. IV line is patent and saline-locked. All needs met. Will endorse to night club manager RN.
[2021-01-30 20:00] VITALS: BP_SYST 126; BP_SYST 136
[2021-01-30] MEDS ORDERED: ATORVASTATIN 20 MG TABLET PO SCH (21:00)
--- NOTE | 2021-01-30 23:34 | NUR ---
CL lab recived by terry salazar from lab. troponin 0.101. WIll notify
--- NOTE | 2021-01-30 23:46 | NUR ---
spoke to MD Newsome. reported CL. trop 0.101 NNO
[2021-01-31 00:30] VITALS: BP_SYST 105
[2021-01-31] MEDS: INSULIN REGULAR, HUMAN 100 UNITS/ML, 10 ML VIAL (humuLIN R) SUBCUT PRN (05:40)
[2021-01-31] MEDS: hydrALAZINE HCL 25 MG TABLET PO SCH (05:42)
[2021-01-31 08:00] VITALS: BP_SYST 145
--- NOTE | 2021-01-31 08:00 | NUR ---
Initial notes Awake, oriented, ambulate with steady gait. denies any chest pain or shortness of breath, has dry cough o2 sat in Room air is 97%. safety precaution observed. call light within reach. will monitor.
[2021-01-31] MEDS ORDERED: CLOPIDOGREL BISULFATE 75 MG TABLET PO SCH (09:00)
[2021-01-31] MEDS ORDERED: METOPROLOL SUCCINATE 50 MG TAB.SR.24H (TOPROL XL) PO SCH (09:00)
[2021-01-31] MEDS ORDERED: lisinopriL 20 MG TABLET PO SCH (09:00)
[2021-01-31 09:53] LABS: ANION GAP 8 (5-15); CALCIUM 9.1 mg/dL (8.4-11.0); CHLORIDE 103 mmol/L (98-107); CREATININE 1.54 mg/dL (0.55-1.30); GLUCOSE 134 mg/dL (70-99); POTASSIUM 4.2 mmol/L (3.5-5.1); SODIUM SERUM 136 mmol/L (136-145); UREA NITROGEN, BLOOD 28 mg/dL (8-21)
[2021-01-31 10:02] LABS: ALANINE AMINOTRANSFERASE 15 U/L (12-78); ALBUMIN 3.2 g/dL (3.4-4.8); ASPARTATE AMINOTRANSFERASE 14 U/L (10-37); TOTAL BILIRUBIN 0.3 mg/dL (0.0-1.0)
[2021-01-31 10:52] VITALS: BP_SYST 140
--- NOTE | 2021-01-31 11:19 | NUR ---
Discharge patient home, denies any chest pain or shortness of breath. afebrile, ambulatory, discharge instruction given. verbalize understanding. arm band and IVL removed.
== END 2021-01-31 11:15 | disposition home or self-care (01) ==
LOC: SED 04:12 → STU 08:21
PROVIDERS: ADMIT Internal Medicine Hospice and Palliative Medicine; ATTEND Internal Medicine Hospice and Palliative Medicine
DX: R07.89 Other chest pain (principal); Z20.822 Contact with and (suspected) exposure to COVID-19; I48.20 Chronic atrial fibrillation, unspecified; I12.9 Hypertensive chronic kidney disease with stage 1 through stage 4 chronic kidney disease, or unspecified chronic kidney disease; E11.22 Type 2 diabetes mellitus with diabetic chronic kidney disease; N18.30 Chronic kidney disease, stage 3 unspecified; I25.10 Atherosclerotic heart disease of native coronary artery without angina pectoris; J06.9 Acute upper respiratory infection, unspecified; E78.5 Hyperlipidemia, unspecified; Z79.899 Other long term (current) drug therapy; Z85.3 Personal history of malignant neoplasm of breast; Z90.11 Acquired absence of right breast and nipple; Z92.3 Personal history of irradiation; Z98.61 Coronary angioplasty status
CPT/HCPCS: 36415 ×2; 71045; 71275; 76376; 80053 ×2; 82962 ×2; 83605; 83880; 84484 ×2; 85025; 85379; 86710; 87040; 87426; 93005 ×2; 93306; 96365; 96367; 96368; 96372 ×2; 96376; 99291; G0378 ×2; J0456; J0696; J3490 ×2; Q9967; U0003